=== PATIENT | female | born 1960 | race Caucasian/White ===

== ENCOUNTER 2021-06-02 11:10 | Inpatient (IN) | payer OTHER, SELFPAY ==
[~2021-06-02] VITALS: Ht 167.6 cm; Wt 66.7 kg
[2021-06-02 11:17] VITALS: BP_SYST 140
--- NOTE | 2021-06-02 11:17 | NUR ---
Placed in room 8 . Placed on strategic marketing specialist, blood pressure machine and pulse oximeter. To gown for exam. Side rails up. Report given to VIDYA CHICAS.
--- NOTE | 2021-06-02 11:23 | NUR ---
PT LAYING IN BED, IN NAD. ON THE PHONE, CONVERSING AND LAUGHING. PT DENIES ANY SOB OR CP AT THIS TIME. STATES SHE CAME BECAUSE SHE WAS TOLD SHE HAD COVID. DENIES ANY RECENT FEVERS, JUST GENERAL MALAISE. SKIN W/D/I, VSS, ON RA @97%. SAFETY PRECAUTIONS IN PLACE ON COVID ISOLATION.
--- NOTE | 2021-06-02 11:25 | NUR ---
PT BIBA SQU[address], POSSIBLE SYNCOPE/POSSIBLE SEIZURE, PT WAS CLEANING SLIP AND FELL, FAMILY THOUGHT SHE HAD A SEIZURE, BUT PT DENIES ANY SZ ACTIVITY, ON KEPPRA AND TAKING HER MEDS PRESCRIBED. NO ORAL TRAUMA, NO LOC.
--- NOTE | 2021-06-02 12:26 | NUR ---
DR CONDON IN ROOM FOR EXAM
[2021-06-02] MEDS ORDERED: NS 1000 ML IV.SOLN IV ONE (12:30)
--- NOTE | 2021-06-02 12:58 | NUR ---
PT IN NAD. CONTINUES TO BE ON PHONE, IV SL INSERTED, FLUIDS INFUSING ORDERED. SEIZURE PRECAUTIONS IN PLACE. SAFETY PRECAUTIONS IN PLACE.
[2021-06-02 13:10] LABS: CALCIUM 9.5 mg/dL (8.4-11.0); CREATININE 0.66 mg/dL (0.55-1.30); POTASSIUM 3.3 mmol/L (3.5-5.1)
[2021-06-02 13:14] LABS: PROTHROMBIN TIME 10.4 SECS (9.5-12.5)
[2021-06-02 13:17] LABS: ALBUMIN 4.1 g/dL (3.4-4.8); TOTAL BILIRUBIN 0.6 mg/dL (0.0-1.0)
--- NOTE | 2021-06-02 13:45 | NUR ---
SW DAUGHTER FOR STATUS UPDATE
[2021-06-02 13:49] LABS: BASOPHILS % (AUTO) 0.3 % (0.0-2.0); HEMATOCRIT 37.2 % (36-48); HEMOGLOBIN 12.7 g/dL (12.0-16.0); LYMPHOCYTES # (AUTO) 0.9 K/uL (1.0-5.5); LYMPHOCYTES % (AUTO) 7.7 % (20.5-51.5); MEAN CORPUSCULAR HEMOGLOBIN 29 pg (27-31); MEAN CORPUSCULAR HGB CONC 34 % (32-36); MEAN CORPUSCULAR VOLUME 84 fL (79.0-98.0); MONOCYTES # (AUTO) 0.7 K/uL (0.0-1.0); MONOCYTES % (AUTO) 6.3 % (1.7-9.3); NEUTROPHILS # (AUTO) 9.6 K/uL (1.8-7.7); NEUTROPHILS % (AUTO) 85.7 % (40.0-70.0); PLATELET COUNT (AUTO) 213 K/uL (130-430); RED BLOOD CELL COUNT(AUTO) 4.43 MIL/uL (4.2-6.2); RED CELL DISTRIBUTION WIDTH 12.4 % (9.0-15.0); WHITE BLOOD COUNT (AUTO) 11.2 K/uL (4.8-10.8)
[2021-06-02 14:07] LABS: BILIRUBIN,URINE NEGATIVE (NEGATIVE); BLOOD, URINE 2+ (NEGATIVE); CLARITY/URINE CLEAR (CLEAR); COLOR,URINE YELLOW (YELLOW); GLUCOSE,URINE NEGATIVE (NEGATIVE); KETONES,URINE 1+ (NEGATIVE); LEUKOCYTE ESTERASE ,URINE TRACE (NEGATIVE); NITRITE, URINE NEGATIVE (NEGATIVE); PH,URINE 6.5 (5.0-8.0); PROTEIN URINE NEGATIVE (NEGATIVE); UROBILINOGEN,URINE 0.2 (0.2-1.0)
[2021-06-02] MEDS ORDERED: POTASSIUM CHLORIDE 20 MEQ TAB.PRT.SR PO ONE (14:30)
[2021-06-02 14:54] LABS: BACTERIA,URINE FEW /HPF (None Seen); MUCUS,URINE 1+ /LPF (None Seen)
--- NOTE | 2021-06-02 15:41 | NUR ---
DR CONDON AT BEDSIDE FOR REASSESSMENT, DTR [facility] CALLED TO COME IN.
--- NOTE | 2021-06-02 16:10 | NUR ---
DTR COMES TO ER, WAITING TO SPEAKWITH DR HAN TRANSFER TO CHECK.
--- NOTE | 2021-06-02 17:17 | NUR ---
PT C/O MILD HEADACHE, REQUESTINNG TYLENOL. DR CONDON INFORMED.
--- NOTE | 2021-06-02 17:29 | NUR ---
MEDICATED WITH TYENOL ORDERED, COVID ISOLATION IN PLACE. WAITING FOR FURTHER INFO ON [facility] TRANSFER
[2021-06-02] MEDS ORDERED: ACETAMINOPHEN 500 MG TABLET PO ONE (17:30)
--- NOTE | 2021-06-02 18:17 | NUR ---
BROUGHT PIZZA FOR PT, WATER AND BOX OF PIZZA GIVEN TO PT.
--- NOTE | 2021-06-02 19:56 | NUR ---
PT PROVIDED WITH BEDSIDE COMMODE. PT WALKING AROUND IN ROOM, STAEDY GAIT, IN NAD. RESP EVEN AND UNLABORED, ON RA @98%.
--- NOTE | 2021-06-02 20:14 | NUR ---
PT BECOMING MORE RESTLESS AND AGITATED, STATES SHE WANTS TO GO HOME AND SLEEP IN OWN BED. DR CONDON NOTIFIED, NO ORDERS RECEIEVED, WAITING FOR [facility] TRANSFER.
--- NOTE | 2021-06-02 21:08 | NUR ---
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 DR LEMOS WAS MESSAGED FOR ADMISSION. PT ADVISED AND INFORMED OF PLAN OF CARE. VERBALIZED UNDERSTADING. VSS. COMFORT MEASURES PROVIDED, SAFETY MEASURES IN PLACE.
--- NOTE | 2021-06-02 21:59 | NUR ---
PT WITH EYES CLOSED, IN NAD. RESP EVEN AND UNLABORED, ON RA @97%
[2021-06-02] MEDS ORDERED: NALOXONE HCL 0.4 MG/ML AMP (NARCAN) IVP PRN ×2 (23:00)
[2021-06-02] MEDS ORDERED: ONDANSETRON HCL 4 MG/2 ML VIAL IVP PRN (23:00)
[2021-06-02] MEDS ORDERED: LORazepam 2 MG/ML VIAL IVP PRN (23:00)
[2021-06-02] MEDS ORDERED: HYDROcodone/ACETAMIN 10-325 MG TAB PO PRN (23:00)
[2021-06-02] MEDS ORDERED: HYDROcodone/ACETAMIN 5-325 MG TAB (NORCO/ VICODIN) PO PRN (23:00)
--- NOTE | 2021-06-02 23:08 | NUR ---
REPORT GIVEN TO DEE DASILVA
--- NOTE | 2021-06-02 23:51 | NUR ---
Patient going to room 124C
--- NOTE | 2021-06-02 23:56 | NUR ---
Transfer to TELE via ACLS protocol. Licensed nurse present. IV present no signs or symptoms of infiltration.
--- NOTE | 2021-06-03 00:15 | NUR ---
ADMIT NOTE Received pt from ER to the floor with a diagnosis of SYNCOPE, POSSIBLE SEIZURE. Admission process initiated. patient oriented to pain management, safety and call light-teach back done.
[2021-06-03 00:45] VITALS: BP_SYST 141
--- NOTE | 2021-06-03 01:00 | NUR ---
Initial RN notes Pt AAOx4, VSS, afebrile. No c/o pain or dizziness. Oriented pt to bed/call light use, pt verbalized understanding. Bed low, locked, siderails up x3, call light within easy reach. Warm water provided per pt request. Seizure pads placed. To monitor.
--- NOTE | 2021-06-03 01:24 | NUR ---
CONSULTATION CALLED FOR DR. DUMAS FOR CONSULT OF SYNCOPE ORDER BY DR. Ilene LEMOS SPOKE WITH BILLY
[2021-06-03] MEDS ORDERED: DIVA-74 PO (01:32)
[2021-06-03] MEDS ORDERED: LEVE250T2 PO (01:32)
[2021-06-03] MEDS ORDERED: SERT25TA PO (01:32)
[2021-06-03] MEDS: ACETAMINOPHEN 325 MG TABLET PO PRN ×2 (02:13→20:43)
--- NOTE | 2021-06-03 02:13 | NUR ---
Headache Pt c/o headache, medicated with Tylenol 2tabs PO as needed. Pt ambulated to bathroom, steady gait and voided. Call light within reach. Bed low, locked siderails up x3. Seizure precaution in place. To monitor.
--- NOTE | 2021-06-03 05:00 | NUR ---
Consultation Paged Reason for Consultation: Seizure Was consult called: Y Person who was notified: Dr. Pandey text message Consulting Physician: Jose Boyd Ordering Physician: Amit. Marquita
[2021-06-03] MEDS ORDERED: NORMAL SALINE 5 ML DISP.SYRIN IVF SCH ×2 (06:00→14:00)
--- NOTE | 2021-06-03 06:10 | NUR ---
Closing notes Pt asleep, no s/s distress noted. IV saline locked R. AC 20G clear and patent. Bed low, locked, siderails up x3, call light within easy reach. Pt knows to call nurse for assistance. Seizure precaution in place. To endorse to AM nurse.
[2021-06-03] MEDS: NORMAL SALINE 5 ML DISP.SYRIN IVF SCH ×3 (06:15→22:00)
[2021-06-03 06:52] LABS: BASOPHILS % (AUTO) 0.2 % (0.0-2.0); EOSINOPHILS % (AUTO) 0.2 % (0.0-4.0); HEMATOCRIT 33.1 % (36-48); HEMOGLOBIN 11.3 g/dL (12.0-16.0); LYMPHOCYTES # (AUTO) 2.3 K/uL (1.0-5.5); LYMPHOCYTES % (AUTO) 19.9 % (20.5-51.5); MEAN CORPUSCULAR HEMOGLOBIN 29 pg (27-31); MEAN CORPUSCULAR HGB CONC 34 % (32-36); MEAN CORPUSCULAR VOLUME 84 fL (79.0-98.0); MONOCYTES # (AUTO) 0.7 K/uL (0.0-1.0); MONOCYTES % (AUTO) 6.2 % (1.7-9.3); NEUTROPHILS # (AUTO) 8.6 K/uL (1.8-7.7); NEUTROPHILS % (AUTO) 73.5 % (40.0-70.0); PLATELET COUNT (AUTO) 209 K/uL (130-430); RED BLOOD CELL COUNT(AUTO) 3.96 MIL/uL (4.2-6.2); RED CELL DISTRIBUTION WIDTH 12.2 % (9.0-15.0); WHITE BLOOD COUNT (AUTO) 11.7 K/uL (4.8-10.8)
[2021-06-03 07:46] LABS: CALCIUM 9.2 mg/dL (8.4-11.0); CREATININE 0.54 mg/dL (0.55-1.30); PHOSPHORUS 2.6 mg/dL (2.7-4.5); POTASSIUM 3.5 mmol/L (3.5-5.1)
[2021-06-03 08:00] VITALS: BP_SYST 142
[2021-06-03 11:21] VITALS: BP_SYST 128
[2021-06-03] MEDS ORDERED: guaiFENesin/DEXTROMETHORPHAN 10 ML UDC PO PRN (12:00)
[2021-06-03] MEDS ORDERED: IPRATROPIUM BROM 0.5 MG/2.5 ML VIAL.NEB (ATROVENT) INH PRN (13:00)
[2021-06-03] MEDS ORDERED: HYDROcodone/ACETAMIN 5-325 MG TAB (NORCO/ VICODIN) PO PRN (13:00)
[2021-06-03] MEDS ORDERED: NALOXONE HCL 0.4 MG/ML AMP (NARCAN) IVP PRN ×2 (13:00)
[2021-06-03] MEDS ORDERED: HYDROcodone/ACETAMIN 10-325 MG TAB PO PRN (13:00)
[2021-06-03] MEDS ORDERED: ONDANSETRON HCL 4 MG/2 ML VIAL IVP PRN (13:00)
[2021-06-03] MEDS ORDERED: LORazepam 2 MG/ML VIAL IVP PRN (13:00)
[2021-06-03] MEDS ORDERED: ACETAMINOPHEN 325 MG TABLET PO PRN (13:00)
[2021-06-03] MEDS ORDERED: ALBUTEROL SULFATE 0.083% 2.5 MG/3 ML VIAL.NEB INH PRN (13:00)
--- NOTE | 2021-06-03 13:19 | NUR ---
CONSULTATION: REASON FOR CONSULT: COVID-19 CONSULTING PHYSICIAN: Jose Martin HUYNH ORDERED BY: Ilene LEMOS SPOKE WITH QAMAR FROM [facility] [phone]
[2021-06-03 13:31] VITALS: BP_SYST 128
--- NOTE | 2021-06-03 15:08 | NUR ---
Call placed to [facility]- Requested transfer to [place] -order of stability sent to [place]-chart copied and placed at nursing station. RN notified of possible transfer. Patient agreed to transfer to [place].
[2021-06-03 15:42] VITALS: BP_SYST 156
[2021-06-03] MEDS ORDERED: AZITHROMYCIN 500 MG in NS 250 ML IV SCH (16:00)
[2021-06-03] MEDS ORDERED: cefTRIAXone 1 GM IVPB PREMIX 50 ML IV SCH (16:00)
--- NOTE | 2021-06-03 18:05 | NUR ---
pt A/Ox4,afebrile,vss,ambulatory by self,on seizure precaution with side rails up and padded, on isolation protocol d/t covid positive,started IV antibiotic due,IV site in right antecubital occluded,removed and restarted in left antecubital.20 gauge with 2 attempts,needs attended call light & personal items within pt reach,safety maintained.[place] case manager specialist ke called and endorsed pt condition to him,awaiting bed available in [place].
--- NOTE | 2021-06-03 19:36 | NUR ---
[facility] called and talked to them they said they are still waiting on bed trying for liyah lawson
[2021-06-03] MEDS ORDERED: levETIRAcetam 500 MG TABLET PO SCH (21:00)
[2021-06-04 00:37] VITALS: BP_SYST 138
--- NOTE | 2021-06-04 00:41 | NUR ---
ERICA KERN CALLED AND GAVE ME BED ASSIGNMENT PT GOING TO ROOM 2205 ERICA WILSON FOR REPORT [phone]
[2021-06-04 00:49] VITALS: BP_SYST 144
[2021-06-04] MEDS ORDERED: DIVALPROEX SODIUM 500 MG TABLET( DEPAKOTE) PO SCH (09:00)
[2021-06-04] MEDS ORDERED: amLODIPine BESYLATE 5 MG TABLET PO SCH (09:00)
[2021-06-04] MEDS ORDERED: SERTRALINE HCL 50 MG TABLET PO SCH (09:00)
== END 2021-06-04 01:45 | disposition short-term general hospital (02) | DRG 871 ==
LOC: SED 11:10 → STU 21:38
PROVIDERS: ADMIT Preventive Medicine Preventive Medicine/Occupational Environmental Medicine; ATTEND Preventive Medicine Preventive Medicine/Occupational Environmental Medicine
DX: A41.9 Sepsis, unspecified organism (principal); U07.1 COVID-19; E87.1 Hypo-osmolality and hyponatremia; E87.6 Hypokalemia; F41.9 Anxiety disorder, unspecified; G40.909 Epilepsy, unspecified, not intractable, without status epilepticus; R73.9 Hyperglycemia, unspecified; F32.9 Major depressive disorder, single episode, unspecified; E86.0 Dehydration; Z79.899 Other long term (current) drug therapy
CPT/HCPCS: 36415; 71045; 80048; 80053; 80164; 81000; 83605; 83735; 84100; 84484; 85025; 85610-TC; 85730-TC; 87040-TC; 87086; 93005; 93306; 93880; 96360; 96361; 99285; G0378; J0456; J0696; J7050